=== PATIENT | male | born 1995 | race African-American/Black ===

== ENCOUNTER 2017-08-12 01:30 | Emergency (ER) | payer OTHER ==
[~2017-08-12] VITALS: Ht 190.5 cm; Wt 72.4 kg
[2017-08-12] MEDS ORDERED: MOTRIN600 MG PO (02:31)
[2017-08-12 02:45] VITALS: BP 121/62
== END 2017-08-12 02:46 | disposition home or self-care (01) ==
LOC: EME 01:30
DX: S09.8XXA Other specified injuries of head, initial encounter (principal); S40.012A Contusion of left shoulder, initial encounter; S50.812A Abrasion of left forearm, initial encounter; S50.811A Abrasion of right forearm, initial encounter; S00.03XA Contusion of scalp, initial encounter; Y04.0XXA Assault by unarmed brawl or fight, initial encounter
CPT/HCPCS: 73030; 99281; 99284